=== PATIENT | female | born 1955 | race Caucasian/White ===

== ENCOUNTER → 2021-10-23 | Outpatient (CLI) | payer BC ==
[~2021-10-23] MED LIST: BENICAR 20MG TA20 MG PO; HYGROTON 2525 MG/TAB PO; MULTI VITAMINS1 TAB PO; NORCO 325 MG-51 TAB PO
== END ==
LOC: MC.RAD 14:52
DX: D05.11 Intraductal carcinoma in situ of right breast (principal)
CPT/HCPCS: A9520

== ENCOUNTER → 2021-10-23 | Outpatient (CLI) | payer MEDICARE | LOC: COL.RAD 12:00 | DX: D05.11 Intraductal carcinoma in situ of right breast (principal) | CPT/HCPCS: 32604 ==

== ENCOUNTER 2021-10-24 07:46 | Day surgery (SDC) | payer MEDICARE, BC ==
[~2021-10-24] VITALS: Ht 162.6 cm; Wt 56.8 kg
[2021-10-24 09:07] VITALS: BP 123/88; PULSE 73; TEMP 98.1
[2021-10-24] MEDS ORDERED: BENICAR 20MG TA20 MG PO (09:15)
[2021-10-24] MEDS ORDERED: HYGROTON 2525 MG/TAB PO (09:15)
[2021-10-24] MEDS ORDERED: MULTI VITAMINS1 TAB PO (09:16)
--- NOTE | 2021-10-24 10:51 | NUR ---
Patient returns to room 2 per cart from PACU after having block placed prior to going into surgery. Sats 96% on room air. Resting with eyes closed.
[2021-10-24 13:26] VITALS: BP 129/77; PULSE 65
--- NOTE | 2021-10-24 13:26 | NUR ---
Patient returns to room 2 per cart from surgery and arouses to verbal stimuli. Exofin dressing dry on the right breast incision and right axilla incision with wound edges well approximated. IV fluids infusing left hand. Temp 97.0. Head of cart elevated. Spouse in room. Siderails up x2 and call light in reach. Patient allowed to rest.
[2021-10-24] MEDS ORDERED: NORCO 325 MG-51 TAB PO (13:27)
[2021-10-24 13:41] VITALS: BP 123/72; PULSE 73
--- NOTE | 2021-10-24 13:41 | NUR ---
More awake now and sipping on water. Denies pain and nausea.
[2021-10-24 13:56] VITALS: BP 109/77; PULSE 58
--- NOTE | 2021-10-24 13:56 | NUR ---
Room air sats 95%. Resting and talking with spouse.
[2021-10-24 14:11] VITALS: BP 116/79; PULSE 63
--- NOTE | 2021-10-24 14:11 | NUR ---
Eating muffin and drinking water. Continues to deny pain or nausea.
[2021-10-24 14:26] VITALS: BP 115/75; PULSE 73
--- NOTE | 2021-10-24 14:26 | NUR ---
Tolerated muffin and is awake and alert. Patient has been talking with spouse.
--- NOTE | 2021-10-24 14:43 | NUR ---
IV discontinued and site is free of redness or swelling. Spouse assists patient with dressing.
--- NOTE | 2021-10-24 15:05 | NUR ---
Patient given dismissal instructions and voices understanding of these. Patient dismissed to home driven by spouse and taken to the front door per wheelchair and assisted into vehicle with dismissal instructions in hand.
== END 2021-10-24 15:05 | disposition home or self-care (01) ==
LOC: SDCO 07:46
DX: C50.911 Malignant neoplasm of unspecified site of right female breast (principal); Z98.82 Breast implant status
CPT/HCPCS: A4648; J1100; J2250; J2370; J2704; J2795; J3010; J7120

== ENCOUNTER 2021-12-06 07:32 | Day surgery (SDC) | payer MEDICARE, BC ==
[~2021-12-06] VITALS: Ht 162.6 cm; Wt 56.9 kg
[2021-12-06 08:28] VITALS: BP 117/69; PULSE 65; TEMP 97.6
[2021-12-06 10:40] VITALS: BP 96/66; PULSE 66; TEMP 97.5
--- NOTE | 2021-12-06 10:40 | NUR ---
PT TO BAY 2 FROM OR. 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 VS OBTAINED. PT DENIES ANY PAIN OR DISCOMFORT AT THIS TIME. WILL CONTINUE TO MONITOR PT. PT REQUESTS TO REST AT THIS TIME.
[2021-12-06 10:55] VITALS: BP 92/71; PULSE 51
--- NOTE | 2021-12-06 10:55 | NUR ---
PT CONTINUES TO REST COMFORTABLY. DENIES ANY ISSUES AT THIS TIME.
[2021-12-06 11:10] VITALS: BP 107/71; PULSE 55
--- NOTE | 2021-12-06 11:10 | NUR ---
PT TOLERATING WATER AT THIS TIME. WILL CONTINUE TO MONITOR. DENIES ANY PAIN.
[2021-12-06 11:25] VITALS: BP 90/71; PULSE 51
--- NOTE | 2021-12-06 11:25 | NUR ---
PT CONTINUES TO TOLERATE WATER. DENIES ANY PAIN OR DISCOMFORT AT THIS TIME. WILL CONTINUE TO MONITOR.
--- NOTE | 2021-12-06 11:40 | NUR ---
PT TOLERATING TOAST AND APPLE SAUCE. PT REQUESTS TO REST. WILL CALL OUT IF ANY NEEDS ARISES OR WHEN SHE IS READY FOR DC.
--- NOTE | 2021-12-06 12:20 | NUR ---
IV DC'D. PT TOLERATED WELL.
--- NOTE | 2021-12-06 12:25 | NUR ---
DISCHARGE EDUCATION COMPLETED WITH PT AND HER . VERBALIZED UNDERSTANDING OF HOME AND FOLLOW UP CARE. ALL QUESTIONS ANSWERED. DISCHARGE PAPERWORK GIVEN TO PT.
--- NOTE | 2021-12-06 12:35 | NUR ---
PT OFF UNIT PER WHEELCHAIR. PT DISCHARGE TO HOME WITH PER PERSONAL VEHICLE.
== END 2021-12-06 12:35 | disposition home or self-care (01) ==
LOC: SDCO 07:32
DX: C50.411 Malignant neoplasm of upper-outer quadrant of right female breast (principal)
CPT/HCPCS: C1788; J1644; J7120